=== PATIENT | male | born 1990 | race Caucasian/White ===

== ENCOUNTER 2020-12-11 21:18 | Emergency (ER) | payer BC, SELFPAY ==
[2020-12-11 21:22] VITALS: BP 156/88; PULSE 108; RESP 18; TEMP 36.6; O2SAT 100
[2020-12-11 22:17] LABS: Abs Immature Grans 0.03 10^3/uL (0.0-0.06); Absolute Basophil Count 0.03 10^3/uL (0.0-0.2); Absolute Eosinophil Count 0.15 10^3/uL (0.0-0.7); Absolute Lymphocyte Count 0.69 10^3/uL (1.2-3.4); Absolute Neutrophil Count 8.22 10^3/uL (1.2-6.7); Basophils % 0.3; Eosinophils % 1.5; HCT 44.2 % (40.0-50.0); HGB 16.1 g/dL (13.5-17.5); Immature Grans % 0.3; Lymphocytes % 7.1; MCH 30.2 pg (27.0-33.0); MCHC 36.4 % (32.0-36.0); MCV 82.9 fL (80-95); MPV 10.3 fL (8.0-11.0); Monocytes % 6.2; Neutrophils % 84.6; Nucleated RBC 0 %; Platelet Count 240 10^3/uL (130-400); RBC 5.33 10^6/uL (4.36-5.78); RDW-SD 38.6 fL; WBC 9.72 10^3/uL (4.4-10.8)
[2020-12-11] MEDS: Normal Saline 1,000 ML 1000 ML IV (22:17)
[2020-12-11] MEDS: Ondansetron 4 MG/2 ML VIAL IVP (22:18)
--- NOTE | 2020-12-11 22:30 | W.ED.GENAD ---
Discharge Plan Disposition Patient Disposition: HOME Condition: Stable Discharge Details Clinical Impression: Abdominal pain, Nausea & vomiting Primary Care Provider: Cece,Local ED Provider: Juan Antonio Restrepo Home Meds and New Rx's Prescriptions: Continued losartan 25 mg Tablet 25 mg PO DAILY RF: 0 Discharge Instructions Instructions: Abdominal Pain (ED), Acute Nausea and Vomiting (ED) Additional Instructions: Laboratory values do not reveal any obvious emergent process. As we discussed, bland diet, advance as tolerated. [id number] medication such as omeprazole for symptomatic control. Please watch for new or worsening symptoms and return to the ER for any concerns. Otherwise I recommend reaching out your primary care provider once you return home, outpatient ultrasound and/or endoscopy may be indicated for further evaluation if your symptoms persist. Medical Decision Making 30-year-old gentleman, history of hypertension, presents complaining of abdominal pain, nausea, vomiting this occurred after eating dinner both yesterday and today. After vomiting he is asymptomatic. He was able to eat lunch without any difficulty. Denies any previous abdominal surgeries. Clinically he appears well, nontoxic, abdomen is soft, nontender, and he is resting using his phone without difficulty. Differential includes but not excluded to GERD, peptic ulcer disease, gastritis, pancreatitis, biliary colic, etc. Will obtain CBC, CMP, lipase. Given he is asymptomatic, will not provide any IV or oral medications at this time. Patient is comfortable with this plan. He returns home tomorrow after work where he does have a primary care provider. Laboratory values are unremarkable for any obvious emergent process. I see no clear indication for emergent CT imaging here in the ER this evening. Discussed outpatient follow-up through his primary care provider, potential endoscopy, ultrasound, etc. Discussed watching his diet, [id number] omeprazole, and return to the ER for new or worsening symptoms. Patient agreeable to this plan and has no additional questions or concerns. Lab Data Lab results reviewed: Yes I reviewed the patient's lab results. Labs: Laboratory Tests Range/Units 12/11/20 12/11/20 22:09 22:09 WBC (4.4-10.8) 10^3/uL 9.72 RBC (4.36-5.78) 10^6/uL 5.33 Hgb (13.5-17.5) g/dL 16.1 Hct (40.0-50.0) % 44.2 MCV (80-95) fL 82.9 MCH (27.0-33.0) pg 30.2 MCHC (32.0-36.0) % 36.4 H RDW (11.8-14.1) % 13.0 Plt Count (130-400) 10^3/uL 240 MPV (8.0-11.0) fL 10.3 Immature Gran % 0.3 Neutrophils % 84.6 Lymphocytes % 7.1 Monocytes % 6.2 Eosinophils % 1.5 Basophils % 0.3 Nucleated RBC % % 0 Absolute Neutrophils (1.2-6.7) 10^3/uL 8.22 H Absolute Lymphocytes (1.2-3.4) 10^3/uL 0.69 L Absolute Monocytes (0.1-0.8) 10^3/uL 0.60 Absolute Eosinophils (0.0-0.7) 10^3/uL 0.15 Absolute Basophils (0.0-0.2) 10^3/uL 0.03 Sodium (136-145) mmol/L 139 Potassium (3.5-5.1) mmol/L 3.4 L Chloride (98-107) mmol/L 102 Carbon Dioxide (21.0-32.0) mmol/L 28.9 Anion Gap (3-11) mmol/L 8.1 BUN (7-18) mg/dL 11 Creatinine (0.70-1.30) mg/dL 1.1 Estimated GFR/1.73 m2 (mL/min/1.73m2) >= 60.00 Glucose (74-106) mg/dL 118 H Calcium (8.5-10.1) mg/dL 9.3 Total Bilirubin (0.2-1.0) mg/dL 0.9 AST (15-37) U/L 29 ALT (16-63) U/L 58 Alkaline Phosphatase (46-116) U/L 114 Total Protein (6.4-8.2) g/dL 8.2 Albumin (3.4-5.0) g/dL 3.9 Lipase (73-393) U/L 91 HPI General Mode of arrival: ambulatory. Date/Time Provider Initiated Documentation: 12/11/20 21:19. Limitations to Documentation: no limitations. Information obtained by: patient. HPI Narrative: This is a 30-year-old gentleman, past medical history of hypertension, presenting to the ER for evaluation. He reports that he is in the area currently for work, has been eating out more than he typically avoids. He states that since late August he has been following a keto diet, has lost approximately 40 pounds. Yesterday he ate out at a diner, had enchiladas which is more carbs than he would typically eat. Subsequently he developed epigastric discomfort, nausea, vomiting, after vomiting he was asymptomatic. Patient reports that he had lunch today and was asymptomatic. After dinner tonight, a grilled chicken sandwich, he developed similar symptoms. He vomited, took Tums, and is now asymptomatic. He thought that there might have been a small amount of red blood in his vomit yesterday. He denies any bad food exposure, recent sick contacts, fever, chest pain, shortness of breath, back pain, change in bowel or bladder function. Denies diarrhea or constipation. Patient states that his significant other is an ER nurse and they are concerned that this may be his gallbladder. He denies previous abdominal surgery Related Data Home Medications Medication Instructions Recorded Confirmed losartan 25 mg PO DAILY 12/11/20 12/11/20 Allergies Allergy/AdvReac Type Severity Reaction Status Date / Time No Known Allergies Allergy Unverified 12/11/20 21:25 General Stated Complaint: Abd Prob LISA: 3 Review of Systems Constitutional Constitutional: Denies fever(s) Cardiovascular Cardiovascular: Denies chest pain and Denies dyspnea Respiratory Respiratory: Denies cough and Denies dyspnea Gastrointestinal Gastrointestinal: Reports abdominal pain, Denies melena, Denies constipation, Denies diarrhea, Reports nausea and Reports vomiting Genitourinary Genitourinary: Denies dysuria Musculoskeletal Musculoskeletal: Denies back pain Integumentary/Breasts Skin/Breast: Denies rash [facility] Social History Smoking/Tobacco Use Status: Never Smoking risk assessment performed?: Yes Substance use type: does not use Exam Const General: cooperative, healthy appearing, comfortable and no acute distress Orientation: alert and awake [facility] Head: normal to inspection, normocephalic and atraumatic Eyes General: appearance normal, both eyes and all related structures Conjunctivae: conjunctivae normal Neck Neck: normal visual inspection, trachea midline and supple Resp Effort & Inspection: normal respiratory effort and able to speak in complete sentences Auscultation: clear to auscultation bilaterally Cardio Rate: regular rate Rhythm: regular rhythm GI Inspection: normal to inspection Palpation: soft, not firm, no guarding, no pulsatile masses and nontender Auscultation: normal bowel sounds Back/Spine/Pelvis Back: No back tenderness Skin General skin exam: no rashes or lesions noted Neuro General: patient alert, patient awake, moves all extremities and no focal motor deficits Cognition: normal cognition Speech: speech normal Gait: normal gait Motor: muscle tone normal throughout Sensory Exam: no sensory deficits noted Psych Appearance: grossly normal Mental Status: mental status grossly normal Course Vital Signs Vital signs: Vital Signs Temperature 36.6 C 12/11/20 21:22 Pulse 108 H 12/11/20 21:22 Respiratory Rate 18 12/11/20 21:22 Blood Pressure 156/88 H 12/11/20 21:22 Pulse Oximetry 100 12/11/20 21:22 Temperature 36.6 C 12/11/20 21:22 Temperature Source Temporal Artery Scan 12/11/20 21:22 Pulse 108 H 12/11/20 21:22 Respiratory Rate 18 12/11/20 21:22 Respiratory Effort 12/11/20 22:18 Blood Pressure 156/88 H 12/11/20 21:22 Blood Pressure Position Sitting 12/11/20 21:22 Pulse Oximetry 100 12/11/20 21:22 Pain Level 0 12/11/20 21:22 Lab/Test Results Lab/Test Results: Laboratory Tests Range/Units 12/11/20 22:09 WBC (4.4-10.8) 10^3/uL 9.72 RBC (4.36-5.78) 10^6/uL 5.33 Hgb (13.5-17.5) g/dL 16.1 Hct (40.0-50.0) % 44.2 MCV (80-95) fL 82.9 MCH (27.0-33.0) pg 30.2 MCHC (32.0-36.0) % 36.4 H RDW (11.8-14.1) % 13.0 Plt Count (130-400) 10^3/uL 240 MPV (8.0-11.0) fL 10.3 Immature Gran % 0.3 Neutrophils % 84.6 Lymphocytes % 7.1 Monocytes % 6.2 Eosinophils % 1.5 Basophils % 0.3 Nucleated RBC % % 0 Absolute Neutrophils (1.2-6.7) 10^3/uL 8.22 H Absolute Lymphocytes (1.2-3.4) 10^3/uL 0.69 L Absolute Monocytes (0.1-0.8) 10^3/uL 0.60 Absolute Eosinophils (0.0-0.7) 10^3/uL 0.15 Absolute Basophils (0.0-0.2) 10^3/uL 0.03
[2020-12-11 22:34] LABS: ALT 58 U/L (16-63); AST 29 U/L (15-37); Albumin 3.9 g/dL (3.4-5.0); Alkaline Phosphatase 114 U/L (46-116); Anion Gap 8.1 mmol/L (3-11); BUN 11 mg/dL (7-18); Bilirubin, Total 0.9 mg/dL (0.2-1.0); CO2 28.9 mmol/L (21.0-32.0); CREATININE 1.1 mg/dL (0.70-1.30); Calcium 9.3 mg/dL (8.5-10.1); Chloride 102 mmol/L (98-107); Glucose 118 mg/dL (74-106); Lipase 91 U/L (73-393); Potassium 3.4 mmol/L (3.5-5.1); Sodium 139 mmol/L (136-145); Total Protein 8.2 g/dL (6.4-8.2)
[2020-12-11 22:55] VITALS: PULSE 71; RESP 18; TEMP 36.7; O2SAT 99
== END 2020-12-11 22:57 | disposition home or self-care (01) ==
PROVIDERS: Emergency Provider Physician Assistant
DX: R10.13 Epigastric pain (principal); R11.2 Nausea with vomiting, unspecified
CPT/HCPCS: 80053; 83690; 96374; 99284; 85025; 99283; J2405